=== PATIENT | female | born 1950 | race Two or more races ===

== ENCOUNTER 2017-11-04 10:59 | Outpatient (CLI) | payer OTHER | END 2017-11-04 11:02 | disposition home or self-care (01) | LOC: SONOGRAMA 10:59 | DX: D44.0 Neoplasm of uncertain behavior of thyroid gland (principal) ==

== ENCOUNTER 2019-07-03 10:50 | Outpatient (CLI) | payer OTHER | END 2019-07-03 10:53 | disposition home or self-care (01) | LOC: SONOGRAMA 10:50 | DX: E04.1 Nontoxic single thyroid nodule (principal) ==